=== PATIENT | female | born 1995 | race Caucasian/White ===

== ENCOUNTER 2019-12-16 06:13 | Outpatient (CLI) | payer OTHER, SELFPAY ==
[2019-12-16 17:27] LABS: SARS-CoV-2 RNA PCR Negative
== END 2019-12-16 06:14 | disposition home or self-care (01) ==
LOC: ANHCOVIDDT 06:13
PROVIDERS: Visit Provider Surgery Plastic and Reconstructive Surgery
DX: Z01.812 Encounter for preprocedural laboratory examination (principal); Z11.59 Encounter for screening for other viral diseases
CPT/HCPCS: 87635; C9803; U0003

== ENCOUNTER 2019-12-19 02:16 | Day surgery (SDC) | payer OTHER, SELFPAY ==
[2019-12-05 10:29] VITALS: BMI 28.3
[2019-12-19] VITALS (9 sets, daily range): BP systolic 100–122; BP diastolic 59–71; PULSE 68–98; RESP 15–20; TEMP 36.4–36.6; O2SAT 99–100; BMI 28.1
--- NOTE | 2019-12-19 06:50 | WPDHPUPDATE1 ---
History and Physical Update Update Date/Time: 12/19/19 06:50 History and Physical has been reviewed, including an updated exam of the patient. There are NO changes in the patient's condition. Risks, benefits, and alternatives have been discussed and questions answered. Patient agrees to proceed with procedure.
[2019-12-19 07:32] LABS: Urine Cotinine NEGATIVE
--- NOTE | 2019-12-19 07:32 | WPDANESEPPF ---
Anes - Initial Pre Proc Eval Procedure: Operation Date: 12/19/19 08:30 Proposed Procedures p Bilateral Reduction Mammoplasty - Giancarlo Pollock MD Date/Time: 12/19/19 07:32 Surgeon: Giancarlo Pollock MD Pre Op Diagnosis: Bilateral Macromastia Patient Data Age: 24 Gender: F Height: 5 ft Weight: 65.7 kg Allergies Allergy/AdvReac Type Severity Reaction Status Date / Time sulfamethoxazole Allergy Hives Verified 12/19/19 07:32 [From Bactrim] trimethoprim [From Bactrim] Allergy Hives Verified 12/19/19 07:32 Home Medications Medication Instructions Recorded Confirmed Type docusate sodium 100 mg capsule 100 mg PO BID #14 cap 11/30/19 12/05/19 Rx hydrocodone 5 mg-acetaminophen 325 1 tablet PO Q6H PRN #15 tablet 11/30/19 12/05/19 Rx mg tablet ondansetron HCl 4 mg tablet 4 mg PO Q6H #30 tablet 11/30/19 12/05/19 Rx norgestimate-ethinyl estradiol 1 tablet PO DAILY 12/05/19 12/05/19 History [Ortho Tri-Cyclen (28)] Laboratory Tests 12/19/19 07:16 Cotinine Negative Patient hx anesthesia problems: none Family hx anesthesia problems: none PMFSH Social History Social History Gender identity (if verbalized by the patient): Female Anes - Eval Final PreProcedure Day of Procedure 12/19/19 07:32 Patient weight: overweight Heart: regular rate and rhythm Lungs: clear to auscultation Airway: Mallampati scale class 1 Neurological: alert and oriented Last oral intake: >/= 8 hours ASA classification: II Emergent: no Anesthetic plan: proceed Anesthesia type and monitoring: general LMA and standard monitoring Informed Consent: The patient's anesthetic plan and its attendant risks and benefits were discussed with the patient/family/POA. Questions were solicited and answers provided to the satisfaction of the patient/family/POA.
[2019-12-19] MEDS: LACTATED RINGERS 1,000 ML 30 ML IV CONT ×2 (07:40→10:34)
[2019-12-19] MEDS: SCOPOLAMINE 1.5 MG PATCH TRANSDERM (07:55)
--- NOTE | 2019-12-19 07:56 | SUR.PREOP ---
[id number]; DR ROMERO IN ROOM WITH RN. MARKING PT
--- NOTE | 2019-12-19 08:18 | PM.PROC ---
Procedure Note - Detailed Date of procedure: 12/19/19 Pre-op diagnosis: Bilateral Macromastia Post-op diagnosis: same Procedure performed: Bilateral breast reduction Description of procedure: She is here today for bilateral breast reduction. Previously and again today the risks, benefits, alternatives were discussed in extensive detail. I wanted her to be very realistic about the risks involved as well as expectations. We discussed aftercare and what to monitor for. She understands we can never guarantee final breast size and there will always be asymmetry. I was very upfront and honest about the risks of sensation change and even nipple loss (). Made sure answered all of her questions to her satisfaction today and consent was obtained. She was marked in the preoperative holding area with their verification. The patient was taken to the operating room placed supine on the operating table. Anesthesia was provided by anesthesiology. She was prepped and draped in a standard sterile fashion. A surgical time-out was taken. Stab incisions were made and I tumessed with a tumescent solution. I marked out the nipple-areolar complex at 38 mm. I then de-epithelialized the superior pedicle. The pedicle was well left well more than 2 cm in thickness. I then removed the inferior portion of the breast as well as the central keel to get shape based on preoperative planning. At this point copiously irrigated with saline solution and verified a strict hemostasis. I reapproximated the pillars using a 2-0 PDS as well as along the IMF. I tailor tacked the breast into place with marshall. She was placed in a sitting position. I verified the nipple-areolar complex position based on preoperative markings, intraoperative measurements, and observation which were in full agreement. This nipple-areolar complex was marked at 42 mm in size. I then placed supine and de-epithelialized this. Nipple-areolar complex was inset with 3-0 Monocryl. I closed the vertical incision with 3-0 Monocryl in the IMF with 3-0 stratafix. Then everything was closed using a running subcuticular 4-0 Monocryl followed by Steri-Strips. A dressing was placed followed by surgical bra. Patient was awoke and taken to PACU without difficulty. All instrument sponge counts were correct at the end of the case. Anesthesia: GLMA Surgeon: Giancarlo Pollock MD Estimated blood loss (mL): 20 Drains: No Packing: No Pathology: yes Complications: No immediate complications Condition: stable Disposition: PACU Findings: Inverted T, Superior pedicle. Right: 315 grams Left: 374 grams
[2019-12-19] MEDS: ceFAZolin 2 GM/D5W 50 ML 2 GM/50 ML BAG IVPB (08:20)
[2019-12-19] MEDS: ONDANSETRON INJ 4 MG/2 ML VIAL IV PUSH (12:18)
== END 2019-12-19 12:57 | disposition home or self-care (01) ==
PROVIDERS: Visit Provider Surgery Plastic and Reconstructive Surgery
PROC: 0HBV0ZZ Excision of Bilateral Breast, Open Approach (ICD-10-PCS; CPT 19318; principal; 2019-12-19 08:30)
DX: N62 Hypertrophy of breast (principal); N60.31 Fibrosclerosis of right breast
CPT/HCPCS: 19318; 36415; 80307; 88305; A9270; J0171; J0690; J1100; J1170; J2250; J2405; J2704; J3010; J7120

== ENCOUNTER → 2020-12-24 00:37 | Outpatient (CLI) | payer OTHER, SELFPAY ==
[2020-12-24 17:38] LABS: SARS-CoV-2 RNA PCR Negative
== END ==
PROVIDERS: Visit Provider Surgery Plastic and Reconstructive Surgery
DX: Z01.812 Encounter for preprocedural laboratory examination (principal); Z20.822 Contact with and (suspected) exposure to COVID-19
CPT/HCPCS: C9803; U0003; U0005

== ENCOUNTER 2020-12-27 05:55 | Day surgery (SDC) | payer OTHER, SELFPAY ==
[2020-12-06 14:36] VITALS: BMI 26.2
--- NOTE | 2020-12-26 14:49 | WPDANESEPPF ---
Anes - Initial Pre Proc Eval Procedure: Operation Date: 12/27/20 07:00 Proposed Procedures p Bilateral Breast Reduction Mammoplasty - Giancarlo Pollock MD Date/Time: 12/26/20 14:49 Surgeon: Giancarlo Pollock MD Pre Op Diagnosis: Hypermastia Patient Data Age: 25 Gender: F Height: 1.52 m Weight: 61 kg Allergies Allergy/AdvReac Type Severity Reaction Status Date / Time sulfamethoxazole Allergy Mild Hives Verified 12/27/20 06:12 [From Bactrim] trimethoprim [From Bactrim] Allergy Mild Hives Verified 12/27/20 06:12 Home Medications Medication Instructions Recorded Confirmed Type docusate sodium 100 mg capsule 100 mg PO DAILY #14 cap 12/04/20 12/27/20 Rx hydrocodone 5 mg-acetaminophen 325 1 tablet PO Q6H PRN #15 tablet 12/04/20 12/27/20 Rx mg tablet ondansetron HCl 4 mg tablet 4 mg PO Q8H #21 tablet 12/04/20 12/27/20 Rx Patient hx anesthesia problems: none Family hx anesthesia problems: none [facility] Social History Social History Smoking status: Unknown if ever smoked Living arrangements: with family Gender identity (if verbalized by the patient): Female Anes - Eval Final PreProcedure Day of Procedure 12/26/20 14:49 Patient weight: overweight Heart: regular rate and rhythm Lungs: clear to auscultation and normal air movement Airway: Mallampati scale class II Neurological: alert and oriented Last oral intake: >/= 8 hours ASA classification: I Emergent: no Anesthetic plan: proceed Anesthesia type and monitoring: general LMA and standard monitoring Informed Consent: The patient's anesthetic plan and its attendant risks and benefits were discussed with the patient/family/POA. Questions were solicited and answers provided to the satisfaction of the patient/family/POA.
[2020-12-27] VITALS (7 sets, daily range): BP systolic 99–129; BP diastolic 63–84; PULSE 63–105; RESP 13–20; TEMP 36.2–37; O2SAT 94–100; BMI 25.2
--- NOTE | 2020-12-27 06:51 | P.OP_ITS ---
Procedure Note - Detailed Date of Procedure 12/27/20 Pre-op Diagnosis Hypermastia Post-op Diagnosis same Procedure Performed Bilateral reduction mammaplasty Surgeon Giancarlo Pollock MD Anesthesia MAC Indications Patient had previous reduction mammaplasty and has desire for additional volume reduction. Findings Superior pedicle. Inverted T. Tissue removed: Right - 388 grams plus 200 cc of lipoaspirate Left - 373 grams plus 200 cc of lipoaspirate Description of Procedure She is here today for repeat bilateral breast reduction. Previously and again today the risks, benefits, alternatives were discussed in extensive detail. I wanted her to be very realistic about the risks involved as well as expectations. I was very up front honest that repeat reduction has increased risk of complications. Further I can never guarantee final breast size. I was very up front honest about this as she is given very specific goals that she wants to be significantly smaller. I was very clear about the limitations of the procedure and what could and could not accomplish. We discussed aftercare and what to monitor for. She understands we can never guarantee final breast size and there will always be asymmetry. I was very upfront and honest about the risks of sensation change and even nipple loss (). Made sure answered all of her questions to her satisfaction today and consent was obtained. She was marked in the preoperative holding area with their verification. The patient was taken to the operating room placed supine on the operating table. Anesthesia was provided by anesthesiology. She was prepped and draped in a standard sterile fashion. A surgical time-out was taken. Stab incisions were made and I tumessed with a tumescent solution. I marked out the nipple-areolar complex at 42 mm. I then de-epithelialized the pedicle. The pedicle was well left well more than 2 cm in thickness. I then removed the inferior portion of the breast as well as the central keel to get shape based on preoperative planning. At this point copiously irrigated with saline solution and verified a strict hemostasis. I reapproximated the pillars using a 2-0 PDS as well as along the IMF. I tailor tacked the breast into place with marshall. She was placed in a sitting position. I verified the nipple-areolar complex position based on preoperative markings, intraoperative measurements, and obse rvation which were in full agreement. This nipple-areolar complex was marked at 42 mm in size. I then placed supine and de-epithelialized this. Nipple-areolar complex was inset with 3-0 Monocryl. Suction lipectomy based on safe principles was completed using a 4 mm basket cannula in multiple planes and passes in order to get the desired reduction size. I verified in a sitting position. I closed the vertical incision with 3-0 Monocryl in the IMF with 3-0 stratafix. Then everything was closed using a running subcuticular 4-0 Monocryl followed by Steri-Strips. A dressing was placed followed by surgical bra. Patient was awoke and taken to PACU without difficulty. All instrument sponge counts were correct at the end of the case. Estimated Blood Loss 20 Drains No Packing No Pathology yes Complications No immediate complications Condition stable Disposition PACU
--- NOTE | 2020-12-27 06:51 | WPDHPUPDATE1 ---
History and Physical Update Update Date/Time: 12/27/20 06:51 History and Physical has been reviewed, including an updated exam of the patient. There are NO changes in the patient's condition. Risks, benefits, and alternatives have been discussed and questions answered. Patient agrees to proceed with procedure.
[2020-12-27] MEDS: LACTATED RINGERS 1,000 ML 30 ML IV CONT ×2 (06:55→09:32)
[2020-12-27] MEDS: FAMOTIDINE 20 MG/2 ML VIAL IV PUSH (06:56)
[2020-12-27] MEDS: SCOPOLAMINE 1.5 MG PATCH TRANSDERM (06:58)
[2020-12-27] MEDS: ceFAZolin SODIUM 2 GM/20 ML SW SYRINGE IV PUSH (07:04)
[2020-12-27] MEDS: LACTATED RINGERS IRRIG 1,000 ML, LIDOCAINE HCL 1% LOCAL INJ 50 ML, EPINEPHrine HCL INJ ... INFILTRATE (07:30)
[2020-12-27] MEDS: fentaNYL CITRATE INJ (*CRX) 100 MCG/2 ML VIAL 25 MCG IV PUSH ×2 (09:52→10:03)
[2020-12-27] MEDS: ONDANSETRON INJ 4 MG/2 ML VIAL IV PUSH (09:52)
[2020-12-27] MEDS: oxyCODONE HCL (*CRX) 5 MG TAB IR PO (10:38)
--- NOTE | 2020-12-27 11:19 | WPDANESPN ---
Anes - Prog Note Post-Op Date/Time: 12/27/20 11:19 Cardiovascular status: normal Respiratory status: normal Airway patency: baseline Mental status: baseline Post-Op hydration status: normal Vital Signs: Last Vital Signs Temp 36.2 C L 12/27/20 09:32 Pulse 64 12/27/20 10:48 Resp 20 12/27/20 10:48 BP 99/70 L 12/27/20 10:48 Pulse Ox 100 12/27/20 10:48 Pain Score (VAS): 1 I/O: Intake & Output 12/26/20 12/27/20 12/27/20 23:59 07:59 15:59 Intake Total 200 Balance 200 Post-procedural complaints: none Patient Feedback: Patient satisfied with anesthetic care. Other Findings: Patient vital signs back to baseline. Patient denies nausea and vomiting. Patient's pain under control. Patient OK for discharge.
== END 2020-12-27 11:25 | disposition home or self-care (01) ==
PROVIDERS: Visit Provider Surgery Plastic and Reconstructive Surgery
PROC: 0HBV0ZZ Excision of Bilateral Breast, Open Approach (ICD-10-PCS; CPT 19318; principal; 2020-12-27 07:00)
DX: N62 Hypertrophy of breast (principal)
CPT/HCPCS: 19318